=== PATIENT | male | born 1990 | race Caucasian/White ===

== ENCOUNTER 2016-06-15 12:24 | Emergency (ER) | payer OTHER ==
[2016-06-15 12:29] VITALS: O2SAT 98
[2016-06-15 13:07] LABS: COLOR YELLOW; LEUKOCYTE ESTERASE,URINE NEGATIVE (NEGATIVE); NITRITE,URINE NEGATIVE (NEGATIVE)
[2016-06-15 14:35] VITALS: BP 120/99; PULSE 63; RESP 16; TEMP 98.6
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
[2016-06-16 12:03] LABS: CHLAMYDIA AMPLIFICATION GENPRB NEGATIVE (NEGATIVE)
== END 2016-06-15 16:06 | disposition home or self-care (01) ==
DX: I86.1 Scrotal varices (principal); F17.200 Nicotine dependence, unspecified, uncomplicated